=== PATIENT | male | born 1930 | race African-American/Black ===

== ENCOUNTER 2017-07-16 18:25 | Inpatient (IN) | payer MEDICARE ==
[~2017-07-16] VITALS: Ht 167.6 cm; Wt 71.7 kg
[2017-07-16] MEDS ORDERED: ASPIRIN 81MG TABLET PO STA (18:40)
[2017-07-16 19:38] LABS: BASOPHILS % 0.5 % (0.0-2.0); EOSINOPHILS % 0.5 % (0.0-5.0); HEMATOCRIT. 39.6 % (42.0-52.0); HEMOGLOBIN. 13.3 g/dL (14.0-18.0); LYMPHOCYTES % 19.1 % (20.0-50.0); MEAN CORPUSCULAR VOLUME 77.6 fL (80.0-94.0); MEAN PLATELET VOLUME 10.2 fl (7.4-10.4); MONOCYTES % 11.4 % (2.0-8.0); NEUTROPHILS % 68.5 % (40.0-76.0); PLATELET 262 x1000/uL (130-400); RED CELL DISTRIBUTION WIDTH 24.7 % (11.6-14.6)
[2017-07-16 19:45] LABS: CHLORIDE 99 mEq/L (98-107)
[2017-07-16 19:46] LABS: CARBON DIOXIDE 24 mEq/L (21-32)
[2017-07-16 19:48] LABS: INR 2.3; PARTIAL THROMBOPLASTIN TIME 40.2 sec (23.4-31.0); PROTHROMBIN TIME 23.6 sec (9.4-11.6)
[2017-07-16 19:53] LABS: PLATELET ESTIMATE NORMAL
[2017-07-16 19:56] LABS: CREATINE KINASE 93 IU/L (39-308)
[2017-07-16 21:24] LABS: AMMONIA 35 uMol/L (<32)
[2017-07-16] MEDS ORDERED: FUROSEMIDE 40MG/4ML VIAL IVP ONE (21:30)
[2017-07-16] MEDS ORDERED: ISOSORBIDE DINITRATE PO (23:45)
[2017-07-16] MEDS ORDERED: MONT10TA24 PO (23:45)
[2017-07-16] MEDS ORDERED: TAMS0.4C31 PO (23:45)
[2017-07-16] MEDS ORDERED: ATOR40TA70 PO (23:45)
[2017-07-16] MEDS ORDERED: ELIQUIS PO (23:45)
[2017-07-16] MEDS ORDERED: ASPI-1159 PO (23:45)
[2017-07-16] MEDS ORDERED: FURO40TA5 PO (23:45)
[2017-07-16] MEDS ORDERED: DOCU-150 PO (23:45)
[2017-07-17] MEDS ORDERED: DOCUSATE SODIUM 100MG CAPSULE PO PRN (00:15)
[2017-07-17] MEDS ORDERED: ACETAMINOPHEN 325MG TABLET PO PRN (00:15)
[2017-07-17] MEDS: FUROSEMIDE 20MG/2ML VIAL IVP SCH ×3 (02:17→17:09)
[2017-07-17] MEDS: SODIUM CHLORIDE 0.9% INJ 3ML FLUSH IVF SCH ×3 (07:01→21:26)
[2017-07-17 07:20] LABS: BASOPHILS % 0.2 % (0.0-2.0); HEMATOCRIT. 37.5 % (42.0-52.0); HEMOGLOBIN. 12.4 g/dL (14.0-18.0); LYMPHOCYTES % 10.7 % (20.0-50.0); MEAN CORPUSCULAR VOLUME 78.5 fL (80.0-94.0); MEAN PLATELET VOLUME 10.6 fl (7.4-10.4); MONOCYTES % 8.3 % (2.0-8.0); NEUTROPHILS % 80.8 % (40.0-76.0); PLATELET 259 x1000/uL (130-400); RED BLOOD CELL COUNT 4.78 mill/uL (4.7-6.1); RED CELL DISTRIBUTION WIDTH 25.6 % (11.6-14.6)
[2017-07-17] MEDS: THIAMINE HCL 100MG TABLET PO SCH (08:11)
[2017-07-17] MEDS: POTASSIUM CHLORIDE 20MEQ TABLET SR PO SCH (08:11)
[2017-07-17] MEDS: ASPIRIN 81MG EC TABLET PO SCH (08:11)
[2017-07-17] MEDS: FAMOTIDINE 20MG TABLET PO SCH (08:11)
[2017-07-17] MEDS ORDERED: FAMOTIDINE 20MG TABLET PO SCH (09:00)
[2017-07-17] MEDS ORDERED: FUROSEMIDE 40MG TABLET PO SCH (09:00)
[2017-07-17 09:31] LABS: TROPONIN I 0.09 ng/mL (0.00-0.04)
[2017-07-17 09:55] LABS: BG BASE EXCESS 0.2 mmol/L (-2.0-2.0); BG CARBOXYHEMOGLOBIN 0.9 % (0.5-1.5); BG FRACTION INSPIRED OXYGEN 21; BG HCO3 ACT 22.4 mmol/L (22.0-26.0); BG METHEMOGLOBIN 0.3 % (0.0-1.5); BG OXYGEN SATURATION 93.9 % (92.0-98.5); BG OXYHEMOGLOBIN 92.8 % (94.0-97.0); BG PCO2 29.3 mmHg (35.0-45.0); BG PH 7.501 (7.350-7.450); BG PO2 73.3 mmHg (75.0-100.0); BG SAMPLE SITE LEFT BRACHIAL; BG TOTAL HEMOGLOBIN 12.8 g/dL (12.0-18.0); BG VENT MODE ROOM AIR
[2017-07-17] MEDS ORDERED: POTASSIUM CHLORIDE 20MEQ/PACKET PO SCH (12:30)
[2017-07-17 15:48] LABS: INR 2.3; PROTHROMBIN TIME 24.3 sec (9.4-11.6)
[2017-07-17 16:02] LABS: TROPONIN I 0.08 ng/mL (0.00-0.04)
[2017-07-17] MEDS ORDERED: APIXABAN 2.5 MG TABLET PO SCH (17:00)
[2017-07-17] MEDS ORDERED: RIVAROXABAN 10 MG TABLET PO SCH (17:00)
[2017-07-17] MEDS: MONTELUKAST SODIUM 10MG TABLET PO SCH (20:24)
[2017-07-17] MEDS: TAMSULOSIN HCL 0.4MG SR CAPSULE PO SCH (20:25)
[2017-07-17] MEDS: CARVEDILOL 3.125 MG TABLET PO SCH (20:25)
[2017-07-17] MEDS ORDERED: ATORVASTATIN CALCIUM 40MG TABLET PO SCH (21:00)
[2017-07-18] MEDS: FUROSEMIDE 20MG/2ML VIAL IVP SCH ×2 (05:25→17:47)
[2017-07-18] MEDS: SODIUM CHLORIDE 0.9% INJ 3ML FLUSH IVF SCH ×3 (05:25→20:53)
[2017-07-18 06:44] LABS: BASOPHILS % 0.2 % (0.0-2.0); HEMATOCRIT. 38.9 % (42.0-52.0); HEMOGLOBIN. 12.7 g/dL (14.0-18.0); LYMPHOCYTES % 14.8 % (20.0-50.0); MEAN CORPUSCULAR HEMOGLOBIN 25.9 pg (28.0-32.0); MEAN CORPUSCULAR VOLUME 79.1 fL (80.0-94.0); MEAN PLATELET VOLUME 10.4 fl (7.4-10.4); PLATELET 247 x1000/uL (130-400); RED BLOOD CELL COUNT 4.92 mill/uL (4.7-6.1); RED CELL DISTRIBUTION WIDTH 25.7 % (11.6-14.6)
[2017-07-18] MEDS: THIAMINE HCL 100MG TABLET PO SCH (08:44)
[2017-07-18] MEDS: FAMOTIDINE 20MG TABLET PO SCH (08:44)
[2017-07-18] MEDS: CARVEDILOL 3.125 MG TABLET PO SCH ×2 (08:45→20:49)
[2017-07-18] MEDS: ASPIRIN 81MG EC TABLET PO SCH (08:45)
[2017-07-18] MEDS: POTASSIUM CHLORIDE 20MEQ TABLET SR PO SCH (08:45)
[2017-07-18] MEDS: NITROGLYCERIN 0.4MG TABLET SL SL PRN ×4 (10:44→11:59)
[2017-07-18] MEDS: TRAMADOL 50MG TABLET PO PRN (15:49)
[2017-07-18] MEDS ORDERED: DEXTROSE 5% WATER 1,000 ML IV SCH (18:45)
[2017-07-18] MEDS: TAMSULOSIN HCL 0.4MG SR CAPSULE PO SCH (20:53)
[2017-07-18] MEDS: MONTELUKAST SODIUM 10MG TABLET PO SCH (20:53)
[2017-07-19] MEDS: FUROSEMIDE 20MG/2ML VIAL IVP SCH (05:48)
[2017-07-19] MEDS: SODIUM CHLORIDE 0.9% INJ 3ML FLUSH IVF SCH ×2 (06:16→12:48)
[2017-07-19] MEDS: POTASSIUM CHLORIDE 20MEQ TABLET SR PO SCH (08:26)
[2017-07-19] MEDS: CARVEDILOL 3.125 MG TABLET PO SCH (08:26)
[2017-07-19] MEDS: ASPIRIN 81MG EC TABLET PO SCH (08:26)
[2017-07-19] MEDS: THIAMINE HCL 100MG TABLET PO SCH (08:26)
[2017-07-19] MEDS: FAMOTIDINE 20MG TABLET PO SCH (08:26)
[2017-07-19] MEDS: TRAMADOL 50MG TABLET PO PRN ×2 (10:51→13:42)
[2017-07-19 13:42] VITALS: BP 119/67
== END 2017-07-19 16:18 | disposition hospice, home (50) | DRG 291 ==
LOC: ER 19:03 → 8WST 20:07 → EDBEDREQ 20:14 → CANRESERV 21:24 → ENRESERV 21:24
PROVIDERS: ADMIT Internal Medicine; ATTEND Internal Medicine
DX: I11.0 Hypertensive heart disease with heart failure (principal); G92 Toxic encephalopathy; D68.59 Other primary thrombophilia; E87.8 Other disorders of electrolyte and fluid balance, not elsewhere classified; F03.90 Unspecified dementia, unspecified severity, without behavioral disturbance, psychotic disturbance, mood disturbance, and anxiety; I27.2 Other secondary pulmonary hypertension; I07.1 Rheumatic tricuspid insufficiency; Z66 Do not resuscitate; Z51.5 Encounter for palliative care; I25.10 Atherosclerotic heart disease of native coronary artery without angina pectoris; K76.0 Fatty (change of) liver, not elsewhere classified; R74.0 Nonspecific elevation of levels of transaminase and lactic acid dehydrogenase [LDH]; I50.23 Acute on chronic systolic (congestive) heart failure; D64.9 Anemia, unspecified; E03.9 Hypothyroidism, unspecified; E78.5 Hyperlipidemia, unspecified; I48.0 Paroxysmal atrial fibrillation; N28.9 Disorder of kidney and ureter, unspecified; R62.7 Adult failure to thrive; I42.0 Dilated cardiomyopathy; Z86.73 Personal history of transient ischemic attack (TIA), and cerebral infarction without residual deficits; Z95.1 Presence of aortocoronary bypass graft; Z95.810 Presence of automatic (implantable) cardiac defibrillator; I25.2 Old myocardial infarction; Z79.899 Other long term (current) drug therapy; K21.9 Gastro-esophageal reflux disease without esophagitis
CPT/HCPCS: 36415; 36600; 70450; 71010; 80048; 80053; 80061; 82140; 82375; 82550; 82553; 82805; 83690; 83735; 83880; 84443; 84484; 85025; 85610; 85730; 93005; 93306; 97162; 99291; C1893; J1940; J7070; A4315